=== PATIENT | male | born 1975 | race Caucasian/White ===

== ENCOUNTER 2017-07-18 01:06 | Emergency (ER) | payer OTHER ==
[2017-07-18 01:28] VITALS: BP 132/75; PULSE 78; TEMP 97.4; BMI 31.9
--- NOTE | 2017-07-18 01:43 | PDOC ---
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 The patient denies radiation down to the lower extremities. He denies taking medications for pain. Allergies: NKA <Jorge Li - Last Filed: 07/18/17 01:58> - Resident Resident Name: Jannet Maldonado - ED Attending Attestation I have performed the following: I have examined & evaluated the patient, The case was reviewed & discussed with the resident, I agree w/resident's findings & plan, Exceptions are as noted - Physicial Exam PE: 07/18/17 02:35 *Physical Exam General Appearance: Yes: Appropriately Dressed. No: Apparent Distress, Intoxicated HEENT: positive: EOMI, VINAY, Normal ENT Inspection, Normal Voice, TMs Normal, Pharynx Normal. negative: Pale Conjunctivae, Photophobia, Scleral Icterus (R), Scleral Icterus (L) Neck: positive: Trachea midline, Normal Thyroid, Supple. negative: Tender, Rigid, Carotid bruit, Stridor, Lymphadenopathy (R), Lymphadenopathy (L), Thyromegaly Respiratory/Chest: positive: Lungs Clear, Normal Breath Sounds. negative: Chest Tender, Respiratory Distress, Accessory Muscle Use, Labored Respiration, RES, Crackles, Rales, Rhonchi, Stridor, Wheezing, Dullness Cardiovascular: positive: Regular Rhythm, Regular Rate, S1, S2. negative: Edema , JVD, Murmur, Bradycardia, Tachycardia Vascular Pulses: Dorsalis-Pedis (R): 2+, Doralis-Pedis (L): 2+ Gastrointestinal/Abdominal: positive: Normal Bowel Sounds, Flat, Soft. negative : Tender, Organomegaly, Pulsatile Mass, Increased Bowel Sounds, Decreased BS, Distended, Guarding, Rebound, Hernia, Hepatomegaly, Spleenomegaly Lymphatic: negative: Adenopathy, Tenderness Musculoskeletal: positive: Normal Inspection. + right sided paraspinal muscle spasms negative: CVA Tenderness, Decreased Range of Motion Extremity: positive: Normal Capillary Refill, Normal Inspection, Normal Range of Motion, Pelvis Stable. negative: Tender, Pedal Edema, Swelling, Erythema Integumentary: positive: Normal Color, Dry, Warm. 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 negative: EOM Palsy, Facial Droop, Sensory Deficit - Medical Decision Making 07/22/17 19:42 Pt treatment and released <Ramez Self - Last Filed: 07/22/17 19:42>
[2017-07-18] MEDS ORDERED: METHOCARBAMOL 500 MG TABLET PO ONE (01:45)
[2017-07-18] MEDS ORDERED: IBUPROFEN 400 MG TABLET (FP) PO ONE ×2 (01:45→02:06)
--- NOTE | 2017-07-18 01:48 | PDOC ---
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 The patient denies any actual falls, any loss of consciousness, any neck pain, or any numbness, tingling, weakness, chest pain, abdominal pain, headache, vision changes, dizziness/ lightheadedness, or other symptoms. He has not taken any medications for the pain since this happened at about 12:30 AM today. Past History - Past Medical History Allergies/Adverse Reactions: Allergies Allergy/AdvReac Type Severity Reaction Status Date / Time No Known Allergies Allergy Verified 07/18/17 01:27 Home Medications: Ambulatory Orders Methocarbamol [Robaxin -] 500 mg PO BID #14 tablet 08/07/14 Naproxen [Naprosyn -] 500 mg PO BID #14 tablet 08/07/14 Methocarbamol [Robaxin -] 500 mg PO TID #21 tablet 07/18/17 - Immunization History Immunization Up to Date: Yes - Suicide/Smoking/Psychosocial Hx Smoking Status: No Smoking History: Never smoked Have you smoked in the past 12 months: No Number of Cigarettes Smoked Daily: 0 Cigars Per Day: 0 Information on smoking cessation initiated: No Hx Alcohol Use: No Drug/Substance Use Hx: No Substance Use Type: None Review of Systems - Review of Systems Able to Perform ROS?: Yes Constitutional: No: Chills, Fever, Unexplained wgt Loss HEENTM: No: Nose Congestion, Throat Pain Respiratory: No: Cough, Shortness of Breath Cardiac (ROS): No: Chest Pain, Palpitations ABD/GI: No: Constipated, Diarrhea, Nausea, Vomiting : No: Burning, Dysuria Musculoskeletal: Yes: Back Pain. No: Neck Pain Integumentary: No: Bruising, Rash Neurological: No: Headache, Numbness, Tingling, Weakness, Dizziness Endocrine: No: Unexplained Weight Gain, Unexplained Weight Loss *Physical Exam - Vital Signs Last Vital Signs Temp Pulse Resp BP Pulse Ox 97.4 F L 78 18 132/75 99 07/18/17 01:07/18/17 01:07/18/17 01:07/18/17 01:07/18/17 01:27 - Physical Exam General Appearance: Yes: Nourished, Appropriately Dressed, Other (alert, oriented, pleasant, well-appearing adult male who appear mildly uncomfortable, answering questions appropriately). No: Apparent Distress HEENT: positive: EOMI, VINAY, Normal ENT Inspection, Normal Voice, Hearing Grossly Normal. negative: Scleral Icterus (R), Scleral Icterus (L), Nasal Congestion Neck: positive: Trachea midline, Supple. negative: Tender, Rigid Respiratory/Chest: negative: Respiratory Distress, Labored Respiration, Rapid RR , Stridor Cardiovascular: positive: Regular Rhythm, Regular Rate Gastrointestinal/Abdominal: positive: Flat, Soft. negative: Tender, Pulsatile Mass, Guarding Musculoskeletal: positive: Normal Inspection, Muscle Spasm (right paraspinous), Other (appears to be holding back in a bit of a stiff position, no vertebral stepoff or deformity). negative: CVA Tenderness, Vertebral Tenderness Extremity: positive: Normal Capillary Refill, Normal Inspection, Normal Range of Motion. negative: Tender, Cyanosis Integumentary: positive: Normal Color, Dry, Warm. 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 negative: EOM Palsy, Facial Droop, Numbness, Sensory Deficit, Confused, Disoriented Medical Decision Making - Medical Decision Making Patient with h/o one prior back injury 2 years ago which resolved, who p/w acute right T/L paraspinous pain after heavy lifting work injury. No new red flag symptoms (see HPI). Initial Vital Signs Temp Pulse Resp BP Pulse Ox 97.4 F L 78 18 132/75 99 07/18/17 01:07/18/17 01:07/18/17 01:07/18/17 01:07/18/17 01:27 Exam: Well appearing, a bit uncomfortable, stiff back, right paraspinous ttp and mild spasm without vertebral stepoff or deformity. DDX IBNLT: back strain/sprain, less likely compression or other vertebral/ spinous process fracture, DDD, DJD, osteophyte, or other more concerning etiology. W/U ordered: CT L-Spine without contrast. TX ordered: Motrin 800 mg, Robaxin [address] L-Spine: NADP Reassessment: Pain and spasm much improved after ED medications. The patient has gotten significant relief of symptoms with ED medications. They are appropriate for discharge with close outpatient follow up. The patient is comfortable with this plan and will follow up with their PCP in 1 -3 days. Return precautions are discussed and they will come back to the ER if necessary. E-Rx sent to patient's pharmacy for Robaxin. *DC/Admit/Observation/Transfer Diagnosis at time of Disposition: Back sprain, Muscle spasm, Work related injury - Discharge Dispostion Disposition: HOME Condition at time of disposition: Stable Decision to Admit order: No - Prescriptions Prescriptions: Methocarbamol [Robaxin -] 500 mg PO TID #21 tablet - Referrals Referrals: Yadiel Eller [Primary Care Provider] - - Patient Instructions Printed Discharge Instructions: DI for Back Strain or Sprain Additional Instructions: You were seen in the ER for a work-related back injury (back strain/sprain with muscle spasms). We gave you Robaxin and Motrin here in the ER, which helped with your pain. We did a CT scan of the lower back because this is where bones are most commonly injured during heavy lifting. We did not find any new changes on the CT that could indicate any serious injury. After our assessment, we do not believe you are having a medical emergency at this time, and we believe you are safe to go home. 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 Take Motrin 800 mg if you need it for pain (follow the directions on the bottle), or Tylenol up to 1,000 mg for additional pain control (follow the directions on the bottle). Please follow up with your regular PCP doctor in the next 1-4 days , Call their clinic as soon as possible, tell them you were seen in the ER for back pain, and tell them you need an appointment. If you have any new or worsening symptoms please come back to the ER at any time (24 hours a day), especially for new numbness, new tingling, new weakness, new urinary or bowel incontinence or retention, pain you cannot control with Robaxin, Motrin, and Tylenol, or other new symptoms. If you are having severe or life threatening symptoms, or symptoms that make it unsafe to drive or have someone drive you, please call 911. - Post Discharge Activity Forms/Work/School Notes: Back to Work
[2017-07-18] MEDS ORDERED: METHOCARBAMOL 500 MG TABLET ONE (02:06)
== END 2017-07-18 03:01 | disposition home or self-care (01) ==
LOC: JER 01:06
DX: S33.5XXA Sprain of ligaments of lumbar spine, initial encounter (principal); X58.XXXA Exposure to other specified factors, initial encounter; Y93.89 Activity, other specified; Y92.9 Unspecified place or not applicable; Y99.0 Civilian activity done for income or pay; M62.830 Muscle spasm of back; M79.81 Nontraumatic hematoma of soft tissue
CPT/HCPCS: 72131-TC; 99283-25

== ENCOUNTER 2019-09-17 07:09 | Emergency (ER) | payer OTHER ==
[2019-09-17 07:20] VITALS: BP 127/74; PULSE 74; TEMP 98.2; BMI 19.1
[2019-09-17] MEDS ORDERED: IBUPROFEN 600 MG TABLET (FP) PO ONE ×2 (07:27→07:56)
--- NOTE | 2019-09-17 07:56 | PDOC ---
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 States he slipped and fell down a hill complaining of left elbow pain happened just prior to arrival denies any head injury or other injuries to his fall distally no wrist hand or shoulder pain neurovascularly he states he has been intact no acute bleeding did not take anything for pain prior to arrival otherwise the patient is no other complaints Pain is moderate worse with movement and palpation no radiation Past History - Medical History Allergies/Adverse Reactions: Allergies Allergy/AdvReac Type Severity Reaction Status Date / Time No Known Allergies Allergy Verified 07/18/17 01:27 Home Medications: Ambulatory Orders NK [No Known Home Medication] 09/17/19 COPD: No - Immunization History Immunization Up to Date: Yes - Psycho-Social/Smoking History Smoking Status: No Smoking History: Never smoked Have you smoked in the past 12 months: No Number of Cigarettes Smoked Daily: 0 Cigars Per Day: 0 Information on smoking cessation initiated: No - Substance Abuse Hx (Audit-C & DAST Scrn) How often the patient has a drink containing alcohol: Never Score: In Men: 4 or > Positive; In Women: 3 or > Positive: 0 Screen Result (Pos requires Nsg. Audit-10AR): Negative In the last yr the pt used illegal drug/Rx for NonMed reason: No Score: Yes response is considered Positive: 0 Screen Result (Positive result requires Nsg. DAST-10): Negative Review of Systems - Review of Systems Constitutional: No: Chills, Fever, Weakness, Unexplained wgt Loss HEENTM: No: Other Respiratory: No: Cough Musculoskeletal: Yes: Joint Pain. No: Joint Swelling All Other Systems: Reviewed and Negative *Physical Exam - Vital Signs Last Vital Signs Temp Pulse Resp BP Pulse Ox 98.2 F 74 20 127/74 100 09/17/19 07:10 09/17/19 07:10 09/17/19 07:10 09/17/19 07:10 09/17/19 07:10 - Physical Exam 09/17/19 07:53 Awake alert no acute distress head is atraumatic lungs are clear bilaterally heart is regular without murmurs rubs or gallops examination of the left elbow shows mild tenderness over the olecranon process and medially. Does have full range of motion there is minimal contusion noted minimal swelling the skin overlying is intact. Does have full range of motion distally the wrist is full range of motion 2+ radial ulnar pulses neurovascular intact shoulder is full range of motion on the left no pain no tenderness Remainder of extremities are atraumatic skin is warm dry and intact ED Treatment Course - RADIOLOGY Radiology Studies Ordered: Category Date Time Status ELBOW-LEFT [RAD] Stat Radiology 09/17/19 07:27 Taken Medical Decision Making - Medical Decision Making 09/17/19 07:54 43-year-old male status post left injury to the elbow. Plan x-ray rule out fracture Motrin for pain skin is intact likely discharge home with follow-up as needed X-rays reviewed they are negative for fracture will discharge Discharge - Discharge Information Problems reviewed: Yes Clinical Impression/Diagnosis: Contusion of elbow, left Condition: Improved Disposition: HOME - Admission No - Follow up/Referral Referrals: Dariusz Murray MD [Staff Physician] - - Patient Discharge Instructions Patient Printed Discharge Instructions: Contusion Additional Instructions: Your x-rays today of your elbow are negative for any acute bony injury. You likely bruised the area you can take Motrin 400 mg every 8 hours as needed for pain you can also ice the area to reduce inflammation currently no restrictions you may follow-up with Dr. Murray see referral information and call to schedule for persistent pain beyond 1 week - Post Discharge Activity Work/Back to School Note: Back to Work
== END 2019-09-17 08:20 | disposition home or self-care (01) ==
LOC: FER 07:09
DX: S50.02XA Contusion of left elbow, initial encounter (principal); W19.XXXA Unspecified fall, initial encounter
CPT/HCPCS: 73070-TC-LT-FY; 99283-25

== ENCOUNTER 2022-03-08 08:35 | Emergency (ER) | payer OTHER ==
[2022-03-08] MEDS ORDERED: DIPHTH,PERTUSS(ACELL),TET 0.5 ML DISP.SYRIN IM ONE ×2 (08:49→08:56)
[2022-03-08 09:04] VITALS: BP 129/89; PULSE 97; RESP 18; TEMP 98.4; BMI 31.9
== END 2022-03-08 09:04 | disposition home or self-care (01) ==
LOC: FER 08:35
PROC: 3E0234Z Introduction of Serum, Toxoid and Vaccine into Muscle, Percutaneous Approach (ICD-10-PCS; principal; 2022-03-08)
DX: M79.642 Pain in left hand (principal); M25.561 Pain in right knee
CPT/HCPCS: 90715; 99284-25